=== PATIENT | male | born 1950 | race Caucasian/White ===

== ENCOUNTER 2017-10-19 20:15 | Inpatient (IN) | payer MEDICARE, OTHER, MEDICAID ==
[~2017-10-19] VITALS: Ht 182.9 cm; Wt 81.6 kg
[2017-10-19] MEDS ORDERED: MIDO5TAB PO (21:07)
[2017-10-19] MEDS ORDERED: OLAN5TAB3 PO (21:07)
[2017-10-19] MEDS ORDERED: DIVA500T7 PO (21:07)
[2017-10-19] MEDS ORDERED: LAMO200T2 PO (21:07)
[2017-10-19] MEDS ORDERED: ACET-73 PO (21:07)
[2017-10-19] MEDS ORDERED: DOCU100C36 PO (21:07)
[2017-10-19] MEDS ORDERED: CARB-94 PO (21:07)
[2017-10-19] MEDS ORDERED: IBUP-76 PO (21:07)
[2017-10-19] MEDS ORDERED: MULT1TAB73 PO (21:07)
--- NOTE | 2017-10-19 21:09 | NUR ---
MEDICALLY CLEARED BY DR CRAIG
--- NOTE | 2017-10-19 21:20 | NUR ---
[place] [facility] [place]
[2017-10-19] MEDS ORDERED: ACETAMINOPHEN 325 MG TABLET PO PRN (21:45)
[2017-10-19] MEDS ORDERED: MAGNESIUM HYDROXIDE 30 ML LIQUID UDC PO PRN (21:45)
[2017-10-19] MEDS: ZOLPIDEM 5 MG TABLET PO PRN (22:00)
[2017-10-19] MEDS ORDERED: IBUPROFEN 200 MG TABLET PO PRN (22:15)
--- NOTE | 2017-10-20 00:23 | NUR ---
PATIENT RECEIVED FROM ER VIA [facility] AT 2120. PATIENT ALERT/ORIENTED X1 WITH CONFUSION NOTED, DISORGANIZED, AGITATED, IRRITABLE, AND UNPREDICTABLE. PATIENT UNSTEADY HISTORY OF FALL. SKIN SHOW'S BRUISE TO BACK OF HEAD, BRUISE TO BACK, UPPER BACK BUMP, BRUISE TO LEFT AND RIGHT LEGS, CUTS TO LEFT FINGERS AND RIGHT FINGERS. PATIENT ORIENTED TO UNIT. SPOKE WITH CELSO PINK [phone]. PATIENT FROM [facility] SPOKE WITH [facility] FAXED INFORMATION ON PATIENT [phone]. PATIENT RECEIVED PATIENT RIGHTS HANDBOOK, AND ADVISEMENT.
[2017-10-20] MEDS: LORAZEPAM 0.5 MG TABLET PO PRN (02:57)
[2017-10-20 04:50] VITALS: BP 132/80
[2017-10-20 07:30] VITALS: BP 157/95
[2017-10-20] MEDS ORDERED: LAMOTRIGINE 200 MG TABLET PO SCH ×3 (09:00→21:00)
[2017-10-20] MEDS ORDERED: DIVALPROEX 500 MG TABLET.DR PO SCH (09:00)
[2017-10-20] MEDS: DIVALPROEX ER 500 MG TAB.SR.24H PO SCH ×2 (09:59→16:54)
[2017-10-20] MEDS: DOCUSATE SODIUM 100 MG CAPSULE PO SCH (09:59)
[2017-10-20] MEDS: CARBIDOPA/LEVODOPA 25-250MG TABLET PO SCH ×4 (09:59→20:19)
[2017-10-20] MEDS: LAMOTRIGINE 100 MG TABLET PO SCH ×2 (10:00→20:19)
[2017-10-20] MEDS: MIDODRINE HCL 5 MG TABLET PO SCH ×2 (10:00→16:55)
[2017-10-20] MEDS: MULTIVITAMINS,THERAPEUTIC TABLET PO SCH (10:00)
[2017-10-20] MEDS: NICOTINE 21 MG/24HR PATCH TD SCH ×2 (14:45→17:07)
--- NOTE | 2017-10-20 14:58 | NUR ---
Firearms Report: Plumbing Drafter completed and submitted [employer] Firearms Report on 10/20/17.
[2017-10-20 15:06] VITALS: BP 134/70
[2017-10-20 20:00] VITALS: BP 145/85
[2017-10-20] MEDS ORDERED: QUETIAPINE FUMARATE 25 MG TABLET PO SCH (21:00)
--- NOTE | 2017-10-20 21:55 | NUR ---
PATIENT RECEIVED IN ACTIVITIES ROOM SOCIALIZING WITH STAFF AND PEERS. PATIENT CALM, COOPERATIVE UPON APPROACH. IN NO APPARENT DISTRESS, WILL CONTINUE TO MONITOR. PATIENT USES FWW. PATIENT COMPLAINT WITH MEDICATION. NO AGGRESSIVE OR COMBATIVE BEHAVIOR NOTED WILL CONTINUE TO MONITOR. BED IN LOWEST POSITION, BED LOCKED, AND BED ALARM ON WHILE IN BED.
[2017-10-21] MEDS: ACETAMINOPHEN ES 500 MG TABLET PO PRN (01:47)
[2017-10-21] MEDS: ZOLPIDEM 5 MG TABLET PO PRN (01:51)
[2017-10-21] MEDS: LORAZEPAM 0.5 MG TABLET PO PRN ×2 (04:14→12:41)
[2017-10-21 07:30] VITALS: BP 121/85
[2017-10-21] MEDS: MULTIVITAMINS,THERAPEUTIC TABLET PO SCH (08:49)
[2017-10-21] MEDS: DOCUSATE SODIUM 100 MG CAPSULE PO SCH (08:49)
[2017-10-21] MEDS: NICOTINE 21 MG/24HR PATCH TD SCH (08:49)
[2017-10-21] MEDS: CARBIDOPA/LEVODOPA 25-250MG TABLET PO SCH ×4 (08:50→20:15)
[2017-10-21] MEDS: LAMOTRIGINE 100 MG TABLET PO SCH ×2 (08:50→20:15)
[2017-10-21] MEDS: DIVALPROEX ER 500 MG TAB.SR.24H PO SCH ×2 (08:50→16:30)
[2017-10-21] MEDS: MIDODRINE HCL 5 MG TABLET PO SCH ×2 (08:51→16:31)
--- NOTE | 2017-10-21 14:02 | NUR ---
Initial Discharge Instructions: Patient currently resides at [facility] [[address] [place] [address]; [phone]]. Per pt, he would like to return there upon discharge. Launch Check Out left message for Doni at the facility to confirm if he will be able to return there. SW will continue to collaborate with patient and MD regarding appropriate discharge plan. SW will form a safe and proper discharge.
[2017-10-21 16:09] VITALS: BP 122/71
[2017-10-21 19:51] VITALS: BP 138/91
[2017-10-21] MEDS ORDERED: QUETIAPINE FUMARATE 100 MG TABLET PO SCH (21:00)
[2017-10-21] MEDS ORDERED: QUETIAPINE FUMARATE 25 MG TABLET PO SCH (21:00)
--- NOTE | 2017-10-21 21:23 | NUR ---
RECEIVED PATIENT IN THE DAY ROOM. HE WAS NOTED A/O X 3. HE IS ABLE TO MAKE HIS NEEDS KNOWN AND ABLE TO AMBULATE WITH STEADY GAIT. PATIENT WAS NOTED CALM AND COOPERATIVE, PLEASANT, HYPERVERBAL, TANGENTAL. FAIR INSIGHT. HE DENIES SI, ABLE TO CFS. MEDICATION COMPLIANT AT THIS TIME. SAFETY EMPHASIS BED AT LOWEST POSITION WITH WHEELS LOCKED AND FREQUENT HEAD CHECKS. PT ENCOURAGED TO VERBALIZED FEELINGS.
[2017-10-22] MEDS: LORAZEPAM 0.5 MG TABLET PO PRN ×2 (03:49→14:35)
--- NOTE | 2017-10-22 03:50 | NUR ---
PATIENT WOKE UP AND CAME TO THE NURSING STATION ASKING FOR A SLEEPING PILL. UPON ASSESSMENT, PATIENT WAS NOTED A LITTLE ANXIOUS. ATIVAN 0.5MG PO PRN WAS GIVEN FOR ANXIETY. WILL CONTINUE TO MONITOR.
[2017-10-22] MEDS: ACETAMINOPHEN ES 500 MG TABLET PO PRN (06:19)
--- NOTE | 2017-10-22 06:37 | NUR ---
PATIENT SLEPT FOR APPROX 4.00 HRS THROUGH THE NIGHT. HE CONTINUE HYPERVERBAL, FLIGHT OF IDEAS; HOWEVER NO SI, NO AGGRESSIVE BX WAS NOTED AT THIS TIME. COMPLIANT WITH ADLs. PT C/O LOWER BACK PAIN, TYLENOL 500MG ES PO PRN WAS GIVEN. WILL CONTINUE TO MONITOR.
[2017-10-22 08:00] VITALS: BP 145/81
[2017-10-22] MEDS: LAMOTRIGINE 100 MG TABLET PO SCH ×2 (08:06→20:15)
[2017-10-22] MEDS: DOCUSATE SODIUM 100 MG CAPSULE PO SCH (08:06)
[2017-10-22] MEDS: DIVALPROEX ER 500 MG TAB.SR.24H PO SCH ×2 (08:06→16:43)
[2017-10-22] MEDS: CARBIDOPA/LEVODOPA 25-250MG TABLET PO SCH ×4 (08:06→20:15)
[2017-10-22] MEDS: NICOTINE 21 MG/24HR PATCH TD SCH (08:06)
[2017-10-22] MEDS: MULTIVITAMINS,THERAPEUTIC TABLET PO SCH (08:06)
[2017-10-22 08:15] LABS: THYROID STIMULATING HORMONE 1.709 mIU/mL (0.358-3.740)
[2017-10-22 08:16] LABS: BASOPHILS % (AUTO) 0.5 % (0.0-2.0); EOSINOPHILS # (AUTO) 0.1 K/uL (0.0-0.7); EOSINOPHILS % (AUTO) 0.7 % (0.0-7.0); HEMOGLOBIN 12.1 g/dL (12.5-16.3); LYMPHOCYTES # (AUTO) 0.8 K/uL (20.0-40.0); LYMPHOCYTES % (AUTO) 8.9 % (20.5-51.5); MEAN CORPUSCULAR HEMOGLOBIN 30.9 uug (23.8-33.4); MEAN CORPUSCULAR HGB CONC 34 g/dL (32.5-36.3); MEAN CORPUSCULAR VOLUME 92.1 fL (73.0-96.2); MONOCYTES # (AUTO) 1.1 K/uL (2.0-10.0); MONOCYTES % (AUTO) 11.8 % (0.0-11.0); NEUTROPHILS # (AUTO) 7.3 K/uL (1.8-8.9); NEUTROPHILS % (AUTO) 78.1 % (38.5-71.5); PLATELET COUNT (AUTO) 198 K/uL (152-348); RED BLOOD CELL COUNT(AUTO) 3.91 MIL/uL (4.06-5.63); WHITE BLOOD COUNT (AUTO) 9.4 K/uL (3.6-10.2)
[2017-10-22 08:27] LABS: BILIRUBIN,TOTAL 0.4 mg/dL (0.2-1.0); CREATININE 1.9 mg/dL (0.6-1.3); MAGNESIUM 2.2 mg/dL (1.8-2.4); PHOSPHOROUS 3.2 mg/dL (2.5-4.9); POTASSIUM 4.9 mmol/L (3.5-5.1); TOTAL PROTEIN, SERUM 6.7 g/dL (6.4-8.2)
[2017-10-22] MEDS: MIDODRINE HCL 5 MG TABLET PO SCH ×2 (08:44→16:42)
--- NOTE | 2017-10-22 08:44 | NUR ---
orthostatic B/p: sitting-128/63; standing-121/67
[2017-10-22 16:00] VITALS: BP 140/70
[2017-10-22 17:46] LABS: *BILIRUBIN,URIN NEGATIVE (NEGATIVE); *BLOOD, URINE NEGATIVE (NEGATIVE); *CLARITY,URINE CLEAR (CLEAR); *COLOR,URINE LIGHT YELLOW (YELLOW); *KETONES,URINE NEGATIVE (NEGATIVE); *PROTEIN,URINE NEGATIVE (NEGATIVE); *UROBILINOGEN,URINE 0.2 E.U./dl (NORMAL); LEUKOCYTE ESTERASE ,URINE NEGATIVE (NEGATIVE); NITRITE, URINE NEGATIVE (NEGATIVE); UGLUCOSE NEGATIVE (NEGATIVE)
[2017-10-22 17:51] LABS: *CREATININE,URINE < 13.0 mg/dL (30-125); *URINE TOTAL PROTEIN RANDOM < 6.0 mg/dL (<150/24HR)
[2017-10-22 18:19] LABS: WBC,URINE NONE SEEN /HPF (0-3)
[2017-10-22 20:16] VITALS: BP 126/76
[2017-10-22] MEDS: QUETIAPINE FUMARATE 100 MG TABLET PO SCH (20:16)
[2017-10-22 20:18] VITALS: BP 141/80
--- NOTE | 2017-10-22 20:39 | NUR ---
Orthostatic B/P: Sitting - 126/76; Standing - 141/80
--- NOTE | 2017-10-22 20:40 | NUR ---
RECEIVED PATIENT IN THE DAY ROOM. HE WAS NOTED A/O X 3, AMBULATES INDEPENDENTLY WITH STEADY GAIT AND BALANCE, TREMORS R/T HX OF PARKINSON'S DISEASE. PATIENT WAS COOPERATIVE, PLEASANT, HYPERVERBAL, TANGENTIAL. FAIR INSIGHT. DENIES SI/HI, ABLE TO CFS. PATIENT'S BRUISING AND CUTS THAT WERE NOTED IN H&P HAVE IMPROVED. PATIENT HAS NOT COMPLAINED OF PAIN. COMPLIANT TO MEDICATIONS AT THIS TIME. SAFETY EMPHASIZED; BED AT LOWEST POSITION WITH WHEELS LOCKED AND FREQUENT HEAD CHECKS. PATIENT ENCOURAGED TO VERBALIZE FEELINGS.
[2017-10-22 23:23] VITALS: BP 100/70
--- NOTE | 2017-10-22 23:43 | NUR ---
AT APPROXIMATELY 2229, PATIENT WAS WALKING DOWN THE HALLWAY FROM DAY ROOM TO HIS ROOM AND WAS NOTED TO HAVE PALE SKIN. PATIENT WAS IMMEDIATELY SEATED ON A CHAIR IN THE HALLWAY AND V/S WERE ASSESSED: B/P OF 89/56; HR 78; 96% O2 SAT, RESPONSIVE, A/O X 2. PATIENT REPORTED LIGHT HEADEDNESS AND DIZZINESS. TRANSFERRED PATIENT TO BED, PLACED ON TRENDELENBURG POSITION AND CONTINUED MONITORING V/S EVERY 5 MINUTES FOR 30 MINUTES. SYSTOLIC B/P WAS STABLE AND AT A CONSISTENT RANGE BETWEEN 90 AND 100, DIASTOLIC B/P WAS STABLE AND AT A CONSISTENT RANGE BETWEEN 60 AND 70, PATIENT ASLEEP BUT AROUSABLE, RESPONSIVE, LETHARGIC. BED POSITION WAS CHANGED FROM TRENDELENBURG TO LITHOTOMY POSITION, V/S WERE ASSESSED AFTER 10 MINUTES AT 2310: B/P OF 100/70; HR 80, 96% O2 SAT, RR 17. PATIENT WAS NOTED TO BE ASLEEP AND STABLE. WILL CONTINUE TO FREQUENTLY MONITOR PATIENT.
[2017-10-22 23:53] VITALS: BP 111/70
--- NOTE | 2017-10-23 06:17 | NUR ---
PATIENT WHILE IN THE DAY ROOM WAS NOTED WITH DESTRUCTIVE BX. HE PULLED FEW DECORATIONS, THROW MAGAZINES AND PAPER ON THE FLOOR. PT WAS REDIRECTED, HOWEVER, HE BECOME SARCASTIC REFUSING TO CLEAN AFTER HIMSELF. WILL CONTINUE TO MONITOR.
[2017-10-23 07:12] LABS: BASOPHILS % (AUTO) 0.5 % (0.0-2.0); EOSINOPHILS # (AUTO) 0.1 K/uL (0.0-0.7); EOSINOPHILS % (AUTO) 1.7 % (0.0-7.0); LYMPHOCYTES # (AUTO) 1.2 K/uL (20.0-40.0); LYMPHOCYTES % (AUTO) 14.7 % (20.5-51.5); MEAN CORPUSCULAR HEMOGLOBIN 30.8 uug (23.8-33.4); MEAN CORPUSCULAR HGB CONC 33 g/dL (32.5-36.3); MEAN CORPUSCULAR VOLUME 92.5 fL (73.0-96.2); MONOCYTES % (AUTO) 12.9 % (0.0-11.0); NEUTROPHILS # (AUTO) 5.6 K/uL (1.8-8.9); NEUTROPHILS % (AUTO) 70.2 % (38.5-71.5); PLATELET COUNT (AUTO) 219 K/uL (152-348); RED BLOOD CELL COUNT(AUTO) 3.89 MIL/uL (4.06-5.63)
[2017-10-23 07:26] LABS: BILIRUBIN,TOTAL 0.4 mg/dL (0.2-1.0); CREATININE 1.8 mg/dL (0.6-1.3); MAGNESIUM 2.3 mg/dL (1.8-2.4); PHOSPHOROUS 3.4 mg/dL (2.5-4.9); POTASSIUM 5.1 mmol/L (3.5-5.1); TOTAL PROTEIN, SERUM 6.7 g/dL (6.4-8.2)
[2017-10-23 07:30] VITALS: BP 131/82
[2017-10-23] MEDS: LAMOTRIGINE 100 MG TABLET PO SCH ×2 (08:37→20:28)
[2017-10-23] MEDS: DOCUSATE SODIUM 100 MG CAPSULE PO SCH (08:37)
[2017-10-23] MEDS: MULTIVITAMINS,THERAPEUTIC TABLET PO SCH (08:37)
[2017-10-23] MEDS: DIVALPROEX ER 500 MG TAB.SR.24H PO SCH ×2 (08:37→16:23)
[2017-10-23] MEDS: CARBIDOPA/LEVODOPA 25-250MG TABLET PO SCH ×4 (08:37→20:28)
[2017-10-23] MEDS: MIDODRINE HCL 5 MG TABLET PO SCH ×2 (08:38→16:27)
[2017-10-23] MEDS: NICOTINE 21 MG/24HR PATCH TD SCH (08:38)
[2017-10-23 15:00] VITALS: BP 146/78
[2017-10-23] MEDS: MAG HYDROX/AL HYDROX/SIMETH 30 ML LIQUID UDC PO PRN (16:15)
[2017-10-23 20:10] VITALS: BP 132/77
[2017-10-23] MEDS: QUETIAPINE FUMARATE 100 MG TABLET PO SCH (20:29)
[2017-10-23] MEDS: LORAZEPAM 0.5 MG TABLET PO PRN (23:54)
[2017-10-24] VITALS (7 sets, daily range): BP systolic 138–152; BP diastolic 75–84
--- NOTE | 2017-10-24 06:45 | NUR ---
PATIENT WHILE IN THE DAY ROOM WAS NOTED WITH DESTRUCTIVE BX. HE PULLED FEW DECORATIONS, THROW MAGAZINES AND PAPER ON THE FLOOR. PT WAS REDIRECTED AND WAS COOPERATIVE WITH RN. WHILE IN HIS ROOM, PT WAS EXHIBITING DISRUPTIVE BX (SINGING OUT LOUD EVEN WHEN ASKED TO STOP), WAS UNCOOPERATIVE AND AGGRESSIVE TOWARDS OTHER STAFF (OTHER NURSES). RN WAS ABLE TO REDIRECT PT, BUT STILL EXHIBITED ANXIETY BX, ATIVAN 0.5 MG PO WAS GIVEN @ 2359 TO HELP REDUCE ANXIETY. PT WAS REASSESSED WITHIN ONE HOUR AND MEDICATION NOT EFFECTIVE. PT STILL EXHIBITED ANXIETY BX, HYPERVERBAL, TANGENTAL SPEECH, COOPERATIVE. PT STAYED AWAKE THE WHOLE NIGHT AND CONTINUED TO BE AGGRESSIVE TOWARDS OTHER STAFF. AT APPROX 0330, PT CAME OUT OF ROOM EXHIBITING DESTRUCTIVE BX AND TALKING LOUDLY WHILE AMBULATING IN HALLWAY WITH FWW. ALUMINUM CONTAINER TESTER (GINA ROY) ASKED PT TO GO BACK IN HIS ROOM AND TO LOWER HIS VOICE. PATIENT BECAME AGITATED, RAISED HIS FWW, AND BEGAN TO SWING AND HIT ALUMINUM CONTAINER TESTER WITH FWW. PATIENT WAS NEUTRALIZED BY STAFF AND PLACED IN MIKA CHAIR NEXT TO NURSE STATION FOR SAFETY. WILL CONTINUE TO MONITOR.
[2017-10-24 08:06] LABS: A/G RATIO 1.3 (0.7-1.7); ALBUMIN 3.4 g/dL (2.9-4.4); ALPHA-1-GLOBULIN 0.3 g/dL (0.0-0.4); ALPHA-2-GLOBULIN 0.7 g/dL (0.4-1.0); BETA GLOBULIN 0.8 g/dL (0.7-1.3); GAMMA GLOBULIN 0.7 g/dL (0.4-1.8); GLOBULIN, TOTAL 2.6 g/dL (2.2-3.9); M-SPIKE Not Observed g/dL (Not Observed)
[2017-10-24] MEDS: MULTIVITAMINS,THERAPEUTIC TABLET PO SCH (08:10)
[2017-10-24] MEDS: NICOTINE 21 MG/24HR PATCH TD SCH (08:10)
[2017-10-24] MEDS: DIVALPROEX ER 500 MG TAB.SR.24H PO SCH ×2 (08:10→16:30)
[2017-10-24] MEDS: CARBIDOPA/LEVODOPA 25-250MG TABLET PO SCH ×4 (08:10→21:30)
[2017-10-24] MEDS: LAMOTRIGINE 100 MG TABLET PO SCH ×2 (08:10→21:31)
[2017-10-24] MEDS: DOCUSATE SODIUM 100 MG CAPSULE PO SCH (08:10)
[2017-10-24] MEDS: MIDODRINE HCL 5 MG TABLET PO SCH ×2 (08:17→21:00)
--- NOTE | 2017-10-24 15:00 | NUR ---
Gps/Kitchen Designer- Anxious, talkative, needed to be redirected. B/P sitting 140/76 HR 97, standing 131/74 HR 94 , 02 sat 96% on room air. Ativan 0.5 mg was given po, minimal results. Edwina Castillo OPERATIONAL RISK ANALYST was notified, in to see patient orders received.
[2017-10-24] MEDS: QUETIAPINE FUMARATE 100 MG TABLET PO SCH (21:31)
--- NOTE | 2017-10-25 01:02 | NUR ---
GPS/NSG Patient first observed awake in room, alert, oriented to name and place. Patient refused vital signs. Patient visible at the nursing station asking for medication, pleasant fair appearance, appropriate approach to staff. Continue to monitor for safety.
--- NOTE | 2017-10-25 03:30 | NUR ---
Patient awake and visible on the unit, patient loud and required redirecting. Patient under the impression that HS medication was administered at 1700, patient appeared angry when redirected. Continue to monitor.
--- NOTE | 2017-10-25 06:44 | NUR ---
GPS/NSG Proamatine due at 2100 held for B/P parameters. Continue to monitor orthostatic blood pressure before administration.
[2017-10-25 07:30] VITALS: BP 131/86
[2017-10-25] MEDS: LAMOTRIGINE 100 MG TABLET PO SCH ×2 (09:00→20:38)
[2017-10-25] MEDS: MULTIVITAMINS,THERAPEUTIC TABLET PO SCH (09:00)
[2017-10-25] MEDS: CARBIDOPA/LEVODOPA 25-250MG TABLET PO SCH ×4 (09:00→20:38)
[2017-10-25] MEDS: DOCUSATE SODIUM 100 MG CAPSULE PO SCH (09:00)
[2017-10-25] MEDS: DIVALPROEX ER 500 MG TAB.SR.24H PO SCH ×2 (09:00→17:02)
[2017-10-25] MEDS: MIDODRINE HCL 5 MG TABLET PO SCH ×2 (09:00→20:39)
[2017-10-25] MEDS: NICOTINE 21 MG/24HR PATCH TD SCH (09:00)
[2017-10-25] MEDS: LORAZEPAM 0.5 MG TABLET PO PRN (10:56)
[2017-10-25 15:00] VITALS: BP 146/75
[2017-10-25 20:00] VITALS: BP 153/72
[2017-10-25] MEDS: QUETIAPINE FUMARATE 100 MG TABLET PO SCH (20:38)
--- NOTE | 2017-10-26 06:51 | NUR ---
GPS/NSG Patient first observed awake on unit with labile mood, blunted affect. Patient visible in and out of room, compliant with medication. Proamatine due at 2100 held for B/P parameters. Continue to monitor orthostatic blood pressure before administration. Patient observed at nursing station periodically with increased agitation, demanding, verbally abusive towards staff inappropriate behavior loud, disruptive, taking things posted on the wall, banging on the tables in activity room, responding to internal stimuli, reinforcement by security was necessary to reduce level of agitation, patient was receptive, will continue to monitor behavior for patient safety.
[2017-10-26 07:30] VITALS: BP 152/74
[2017-10-26 08:03] LABS: BASOPHILS % (AUTO) 0.5 % (0.0-2.0); EOSINOPHILS # (AUTO) 0.2 K/uL (0.0-0.7); EOSINOPHILS % (AUTO) 2.1 % (0.0-7.0); HEMATOCRIT 35.9 % (36.7-47.1); HEMOGLOBIN 11.9 g/dL (12.5-16.3); LYMPHOCYTES # (AUTO) 1.5 K/uL (20.0-40.0); LYMPHOCYTES % (AUTO) 16.7 % (20.5-51.5); MEAN CORPUSCULAR HEMOGLOBIN 30.7 uug (23.8-33.4); MEAN CORPUSCULAR HGB CONC 33 g/dL (32.5-36.3); MEAN CORPUSCULAR VOLUME 92.8 fL (73.0-96.2); MONOCYTES # (AUTO) 1.4 K/uL (2.0-10.0); MONOCYTES % (AUTO) 15.8 % (0.0-11.0); NEUTROPHILS # (AUTO) 5.8 K/uL (1.8-8.9); NEUTROPHILS % (AUTO) 64.9 % (38.5-71.5); PLATELET COUNT (AUTO) 270 K/uL (152-348); RED BLOOD CELL COUNT(AUTO) 3.87 MIL/uL (4.06-5.63)
[2017-10-26 08:17] LABS: BILIRUBIN,TOTAL 0.4 mg/dL (0.2-1.0); CREATININE 1.9 mg/dL (0.6-1.3); MAGNESIUM 2.4 mg/dL (1.8-2.4); PHOSPHOROUS 3.4 mg/dL (2.5-4.9); POTASSIUM 4.7 mmol/L (3.5-5.1); TOTAL PROTEIN, SERUM 7.1 g/dL (6.4-8.2)
[2017-10-26] MEDS: MIDODRINE HCL 5 MG TABLET PO SCH (09:00)
[2017-10-26 09:09] LABS: BAND % (MANUAL) 1 % (0-10); EOSINOPHILS % (MANUAL) 2 % (0-8); LYMPHOCYTES % (MANUAL) 17 % (20-40); MONOCYTES % (MANUAL) 11 % (2-10); MYELOCYTES % 1 % (0-0); NEUTROPHILS % (MANUAL) 68 % (42-75)
[2017-10-26] MEDS: DOCUSATE SODIUM 100 MG CAPSULE PO SCH (09:13)
[2017-10-26] MEDS: DIVALPROEX ER 500 MG TAB.SR.24H PO SCH (09:13)
[2017-10-26] MEDS: MULTIVITAMINS,THERAPEUTIC TABLET PO SCH (09:13)
[2017-10-26] MEDS: CARBIDOPA/LEVODOPA 25-250MG TABLET PO SCH ×4 (09:13→20:43)
[2017-10-26] MEDS: LAMOTRIGINE 100 MG TABLET PO SCH ×2 (09:15→20:43)
[2017-10-26] MEDS ORDERED: AMLODIPINE 5 MG TABLET PO SCH (11:45)
[2017-10-26] MEDS ORDERED: METOPROLOL TARTRATE 25 MG TABLET PO SCH (11:45)
[2017-10-26] MEDS: LORAZEPAM 0.5 MG TABLET PO PRN (12:06)
[2017-10-26] MEDS: DIVALPROEX ER 250 MG TAB.SR.24H PO SCH ×2 (12:13→16:57)
[2017-10-26] MEDS: NICOTINE 21 MG/24HR PATCH TD SCH (12:17)
[2017-10-26 15:38] VITALS: BP 159/85
[2017-10-26] MEDS: ACETAMINOPHEN ES 500 MG TABLET PO PRN (15:39)
[2017-10-26] MEDS ORDERED: MIDODRINE HCL 5 MG TABLET PO SCH (17:00)
[2017-10-26] MEDS ORDERED: DIVALPROEX ER 500 MG TAB.SR.24H PO SCH (17:00)
[2017-10-26 19:57] VITALS: BP 127/73
[2017-10-26] MEDS: QUETIAPINE FUMARATE 100 MG TABLET PO SCH (20:44)
[2017-10-27 07:30] VITALS: BP 142/85
--- NOTE | 2017-10-27 07:30 | NUR ---
Awake, angry, refused to talk to me.
[2017-10-27] MEDS: DOCUSATE SODIUM 100 MG CAPSULE PO SCH (08:34)
[2017-10-27] MEDS: DIVALPROEX ER 250 MG TAB.SR.24H PO SCH ×2 (08:34→17:59)
[2017-10-27] MEDS: NICOTINE 21 MG/24HR PATCH TD SCH (08:35)
[2017-10-27] MEDS: MULTIVITAMINS,THERAPEUTIC TABLET PO SCH ×2 (08:35→09:00)
[2017-10-27] MEDS: LAMOTRIGINE 100 MG TABLET PO SCH ×2 (08:35→20:47)
[2017-10-27] MEDS: LORAZEPAM 0.5 MG TABLET PO PRN (08:35)
[2017-10-27] MEDS: CARBIDOPA/LEVODOPA 25-250MG TABLET PO SCH ×4 (08:35→20:47)
--- NOTE | 2017-10-27 08:35 | NUR ---
Pacing but pleasant, compliant wit taking of medications
[2017-10-27] MEDS: METOPROLOL TARTRATE 25 MG TABLET PO SCH ×2 (12:26→20:48)
[2017-10-27 15:09] VITALS: BP 138/81
[2017-10-27] MEDS: BACITRACIN/POLYMYXIN B OINT 15 GM TUBE TOP SCH ×2 (17:59→20:51)
--- NOTE | 2017-10-27 18:19 | NUR ---
Noted dried cuts on fingers, antibiotic treatment initiated. Eating fairly. Calm and compliant with care.
[2017-10-27 20:37] VITALS: BP 148/75
[2017-10-27] MEDS: QUETIAPINE FUMARATE 100 MG TABLET PO SCH (20:47)
[2017-10-28] MEDS: ACETAMINOPHEN ES 500 MG TABLET PO PRN ×2 (03:18→20:45)
--- NOTE | 2017-10-28 04:30 | NUR ---
c/o back pain, stating she hurt her shoulder and back two weeks ago, was given tylenol 500mg po per MD order as requested by pt. sleeping comfortably in bed at this time.
--- NOTE | 2017-10-28 06:55 | NUR ---
Slept 4.30 hrs.
[2017-10-28 07:30] VITALS: BP 123/78
[2017-10-28] MEDS: QUETIAPINE FUMARATE 25 MG TABLET PO SCH ×2 (09:41→17:59)
[2017-10-28] MEDS: DIVALPROEX ER 250 MG TAB.SR.24H PO SCH ×2 (09:41→17:59)
[2017-10-28] MEDS: METOPROLOL TARTRATE 25 MG TABLET PO SCH ×2 (09:41→21:00)
[2017-10-28] MEDS: DOCUSATE SODIUM 100 MG CAPSULE PO SCH (09:41)
[2017-10-28] MEDS: LAMOTRIGINE 100 MG TABLET PO SCH ×2 (09:41→20:34)
[2017-10-28] MEDS: MULTIVITAMINS,THERAPEUTIC TABLET PO SCH (09:42)
[2017-10-28] MEDS: BACITRACIN/POLYMYXIN B OINT 15 GM TUBE TOP SCH ×2 (09:42→20:34)
[2017-10-28] MEDS: NICOTINE 21 MG/24HR PATCH TD SCH (09:42)
[2017-10-28] MEDS: CARBIDOPA/LEVODOPA 25-250MG TABLET PO SCH ×4 (10:36→20:34)
[2017-10-28] MEDS: LORAZEPAM 0.5 MG TABLET PO PRN (14:02)
[2017-10-28 16:44] VITALS: BP 140/74
[2017-10-28 20:23] VITALS: BP 124/91
[2017-10-28] MEDS: QUETIAPINE FUMARATE 100 MG TABLET PO SCH (20:34)
--- NOTE | 2017-10-28 21:00 | NUR ---
RECEIVED PATIENT IN HIS ROOM IN BED. HE WAS NOTED ASLEEP BUT EASILY AWAKEN. HE IS A/O X 3. BLUNTED AFFECT, DEPRESSED MOOD. MEDICATION COMPLIANT AT THIS TIME. SNACKS WERE PROVIDE. DENIES SI/HI. NO AGGRESSIVE BX NOTED AT THIS TIME.
--- NOTE | 2017-10-28 21:30 | NUR ---
PATIENT WAS NOTED DROWSY, BUT RESPONSIVE WHILE SITTING IN A CHAIR IN THE DAY ROOM. PT WAS THEN TRANSFERRED TO A WHEEL CHAIR AND TAKEN TO HIS BED. V/S:B/P 92/57, PULSE 82, RESPIRATION 17 BREATHS PER MIN. O2 SAT AT ROOM AIR 92%. DENIES PAIN OR DISCOMFORT. PATIENT WAS PLACED IN HIS BED WITH LEGS ELEVATED. WILL CONTINUE TO MONITOR CLOSELY.
--- NOTE | 2017-10-28 21:40 | NUR ---
PATIENT V/S: B/P 101/57; PULSE 83BPM; RESPIRATION 17BREATHS/MIN AND O2SAT 94% AT ROOM AIR. PT NOTED ASLEEP IN HIS BED. WILL CONTINUE TO MONITOR CLOSELY.
--- NOTE | 2017-10-29 05:22 | NUR ---
PATIENT WOKE UP AND STARTED PACING THE HALLWAY, HE WAS NOTED EASILY IRRITABLE, FLIGHT OF IDEAS, DISORGANIZED. NO AGGRESSIVE BX NOTED AT THIS TIME. WILL CONTINUE TO MONITOR CLOSELY.
--- NOTE | 2017-10-29 06:14 | NUR ---
PT CONTINUE PACING IN HIS ROOM. EASILY IRRITABLE, FLIGHT OF IDEAS, LABILE BX. HE INITIALLY ASKED FOR TYLENOL THEN 2 MIN LATER, HE REFUSED TO TAKE IT. HE WAS NOTED VERBALLY AGGRESSIVE. MULTIPLE REDIRECTION GIVEN, HOWEVER, HE STATED, I DON'T WANT YOU MEDICATION, GIVE IT SOMEONE ELSE AND GET OUT OF MY ROOM!!!" WILL CONTINUE TO MONITOR CLOSELY.
--- NOTE | 2017-10-29 07:03 | NUR ---
PT SLEPT FOR APPROX 4.30 HRS THROUGH THE NIGHT. HE WAS NOTED TALKING TO HIMSELF, RESPONDING TO VERBAL STIMULI. WILL CONTINUE TO MONITOR.
[2017-10-29 07:30] VITALS: BP 115/82
[2017-10-29] MEDS: MULTIVITAMINS,THERAPEUTIC TABLET PO SCH (09:00)
[2017-10-29] MEDS: DOCUSATE SODIUM 100 MG CAPSULE PO SCH (09:00)
[2017-10-29] MEDS: LAMOTRIGINE 100 MG TABLET PO SCH ×2 (09:00→20:10)
[2017-10-29] MEDS: DIVALPROEX ER 250 MG TAB.SR.24H PO SCH ×2 (09:00→17:00)
[2017-10-29] MEDS: CARBIDOPA/LEVODOPA 25-250MG TABLET PO SCH ×4 (09:00→20:11)
[2017-10-29] MEDS: QUETIAPINE FUMARATE 25 MG TABLET PO SCH ×2 (09:00→17:00)
[2017-10-29] MEDS: METOPROLOL TARTRATE 25 MG TABLET PO SCH ×2 (09:00→21:00)
[2017-10-29] MEDS: BACITRACIN/POLYMYXIN B OINT 15 GM TUBE TOP SCH ×2 (09:00→20:19)
[2017-10-29] MEDS: NICOTINE 21 MG/24HR PATCH TD SCH (09:00)
[2017-10-29] MEDS: LORAZEPAM 0.5 MG TABLET PO PRN (10:38)
[2017-10-29 16:14] VITALS: BP 143/78
[2017-10-29 20:00] VITALS: BP 143/78
[2017-10-29] MEDS: QUETIAPINE FUMARATE 100 MG TABLET PO SCH (20:11)
--- NOTE | 2017-10-29 22:00 | NUR ---
received to care, sitting in activity room, talking to self, pleasant upon approach. compliant with medications, and staff direction. as of 0, he appears to be asleep. no distress noted. will continue to monitor closely.
[2017-10-30 00:15] VITALS: BP 124/64
--- NOTE | 2017-10-30 00:15 | NUR ---
pt is now awake, ambulating in the hallway. b/p was checked, and it was 124/64, hr 84. pt denies any dizziness, or lightheadedness. bedtime snack was given, and he was assisted back to his room. 1;1 interaction was provided for a few minutes. he is now, in his room,talking to himself. remains calm. no distress noted. will continue to monitor closely.
--- NOTE | 2017-10-30 01:58 | NUR ---
REMAINS AWAKE, TALKING TO SELF. AMBULATING IN HALLWAY, WITH A LOUD VOICE. REDIRECTED BACK TO HIS ROOM. PRN MEDICATIONS WERE OFFERED, BUT HE DECLINED. CURRENTLY WRITING ON A PIECE OF PAPER. WILL CONTINUE TO MONITOR CLOSELY.
--- NOTE | 2017-10-30 03:15 | NUR ---
remains awake. threw trash and linens all over the whole room. staff confronted him, and told him that his room was to be moved, because of a female being admitted to his room. he refused to change rooms. when hospital security approached, he complied with moving rooms, but gait appeared unsteady, so he was placed in the mac chair, for safety. currently in his room, talking to himself, loudly. placed in the day room, due to noisiness, and disturbing his room mate. will continue to monitor closely for safety.
--- NOTE | 2017-10-30 05:30 | NUR ---
REMAINS AGITATED. PULLED FIRE ALARM IN DINING ROOM, YELLING THAT [employer] AND KILA IS STAGING A NUCLEAR ATTACK ON BIPIN.
--- NOTE | 2017-10-30 06:24 | NUR ---
appears calmer, now. currently conversing with his room mate. no distress noted.
[2017-10-30 07:30] VITALS: BP 159/84
[2017-10-30] MEDS: NICOTINE 21 MG/24HR PATCH TD SCH (08:58)
[2017-10-30] MEDS: LAMOTRIGINE 100 MG TABLET PO SCH ×2 (08:58→21:00)
[2017-10-30] MEDS: DIVALPROEX ER 250 MG TAB.SR.24H PO SCH ×2 (08:58→17:00)
[2017-10-30] MEDS: METOPROLOL TARTRATE 25 MG TABLET PO SCH (08:59)
[2017-10-30] MEDS: QUETIAPINE FUMARATE 25 MG TABLET PO SCH (08:59)
[2017-10-30] MEDS: DOCUSATE SODIUM 100 MG CAPSULE PO SCH (09:00)
[2017-10-30] MEDS: BACITRACIN/POLYMYXIN B OINT 15 GM TUBE TOP SCH ×2 (09:00→21:00)
[2017-10-30] MEDS: MULTIVITAMINS,THERAPEUTIC TABLET PO SCH (09:00)
[2017-10-30] MEDS: CARBIDOPA/LEVODOPA 25-250MG TABLET PO SCH ×4 (09:10→21:00)
[2017-10-30] MEDS: BENZTROPINE MESYLATE 0.5 MG TABLET PO SCH ×2 (11:00→17:00)
[2017-10-30] MEDS: HALOPERIDOL 2 MG TABLET PO SCH ×3 (11:00→17:00)
--- NOTE | 2017-10-30 13:35 | NUR ---
Gps/Milk Delivery Driver- Right foot swollen ,noted some redness, denies pain, encouraged to wear socks , patient refused. Refused routine afternoon medications. Reviewed with patient, still refused, claimed he does not need any medications, and he needs to leave.
--- NOTE | 2017-10-30 15:30 | NUR ---
Gps/Art History Professor- patient never stop talking, loud, labile mood,extreme agitation difficulty redirecting patient, disruptive , verbally abusive to staff, patient calling 911,unable to contract for safety . Charged Nurse called Psychiatrist, informed of patient' behavior orders received.
[2017-10-30] MEDS ORDERED: diphenhydrAMINE 50 MG/1 ML VIAL IM ONE (15:45)
[2017-10-30] MEDS ORDERED: HALOPERIDOL LACTATE 5 MG/1 ML VIAL IM ONE (15:45)
--- NOTE | 2017-10-30 16:45 | NUR ---
PT WAS OBSERVED, PACING IN THE HALLWAY, BEING LOUD, HYPERVERBAL, DISRUPTIVE, TANGENTIAL SPEECH, REFUSES TO WEAR SOCKS, YELLING ABOUT BASKETBALL TEAM AND DEMANDS HIS SHOES WITH SHOE LACES WITH THEM. PT WAS REDIRECTED MULTIPLE TIMES, PT IS VERBALLY OFFENSIVE TO STAFF, CALLING THEM 'STUPID'. PT ABUSES HIS RIGHTS BUT CONSTANTLY CALLING, INCLUDING PLACING 911 CALLS. PT IS REFUSING PO MEDICATIONS. DR. WATTERS CONTACTED, ORDER FOR BENADRYL 25MG AND HALDOL 5 MG IM WAS RECEIVED. MEDICATIONS ADMINISTERED AT 1546 WITH ASSISTANCE OF 2 SECURITY GUARDS. PT YELLS AND THREATENED TO PAULO FOR 5 MILLION DOLLARS. SCREAMING "HOPE YOU !" HANDS PUT ON THE PATIENT FOR THE TOTAL OF 3 MINUTES. PT IS AGITATED, REFUSES VITAL SIGNS. AT 1620, PT WAS NOTED TO THROW MAGAZINES AND PAPER AROUND HIS ROOM. AT 1630 PT IS STILL PACING THE UNIT AND CONSTANTLY TALKING.
--- NOTE | 2017-10-30 18:11 | NUR ---
Gps/Toll Operator- patient continue to be labile, talking loud, refusing routine patient medication , constantly on the hallway phone,banging it, no dial tone per patient.Constantly asking for his shoes with the shoe laces on per patient, informed he can have the shoes w/o shoe laces ,per patient"then i dont want it, i will this place". Constantlly talking to himself in his room. Continue to monitor patient behavior.
[2017-10-30 20:00] VITALS: BP 165/72
--- NOTE | 2017-10-30 20:00 | NUR ---
pt is very agitated, yelling out obscenities, refusing his medications, threatening to strike staff. difficult to redirect. threw trash all over his room, and the hallway. states "im going to kick your ass", when redirected. Dr Elkins was paged.
[2017-10-30] MEDS ORDERED: OLANZAPINE 10 MG VIAL IM STA (20:13)
[2017-10-30] MEDS ORDERED: LORAZEPAM 2 MG/1 ML VIAL IM STA (20:13)
--- NOTE | 2017-10-30 20:32 | NUR ---
IM zyprexa 10 mg/ ativan 2 mg, given IM, per MD orders. pt complied with procedure, with program staff, and 2 security officers present. pt is now up in mac chair, in hallway, talking to self, making verbal threats, to staff. will continue to monitor closely, for safety.
[2017-10-30] MEDS: QUETIAPINE FUMARATE 100 MG TABLET PO SCH (21:00)
--- NOTE | 2017-10-30 21:30 | NUR ---
appears slightly calmer. remains hyperverbal, talking incoherently. remains in hallway for safety. will continue to monitor closely.
[2017-10-30 21:40] VITALS: BP 154/75
--- NOTE | 2017-10-30 22:30 | NUR ---
assisted to bed, but immediately tried to get out of bed. gait remains unsteady. assisted to the bathroom, and fluids given. due to his noncompliance with staying in bed, he was assisted back in the mac chair, for safety. continues to yell and curse at staff intermittently.
--- NOTE | 2017-10-31 01:00 | NUR ---
has been napping on and off for a few minutes at a time. each time he wakes back up, he continues to yell and curse. difficult to redirect. stated "im going to yell all night and wake everyone up" placed in empty room a [facility] station, for closer monitoring. will continue to monitor closely.
--- NOTE | 2017-10-31 02:43 | NUR ---
appears calmer, now. continues to yell out, intermittently.
--- NOTE | 2017-10-31 05:30 | NUR ---
pt was much calmer, by 0500. he was assisted with a shower, and placed in bed, with the alarm on. gait remains unsteady. as of 05, he appears to be asleep. no distress noted. will continue to monitor closely.
--- NOTE | 2017-10-31 07:00 | NUR ---
continues to sleep. refused AM labs.
--- NOTE | 2017-10-31 07:25 | NUR ---
bed alarm went off, at 0705. staff went in to investigate, and pt was found on the floor. he stated he was trying to urinate in the toilet. he had a laceration to the back of the head. he was placed back in the mac chair, for safety. area was cleansed and ice was applied. nursing abattoir supervisor was notified. Dr Forte was notified. he ordered for him to be taken to the emergency room, for evaluation. Dr Elkins was also notified of incident.
[2017-10-31 07:30] VITALS: BP 129/65
--- NOTE | 2017-10-31 07:45 | NUR ---
pt transferred to the emergency room, for evaluation.
[2017-10-31] MEDS: NICOTINE 21 MG/24HR PATCH TD SCH (09:00)
[2017-10-31] MEDS: BENZTROPINE MESYLATE 0.5 MG TABLET PO SCH ×3 (09:00→17:06)
[2017-10-31] MEDS: DIVALPROEX ER 250 MG TAB.SR.24H PO SCH ×3 (09:00→18:12)
[2017-10-31] MEDS: BACITRACIN/POLYMYXIN B OINT 15 GM TUBE TOP SCH ×2 (09:00→20:44)
[2017-10-31] MEDS: HALOPERIDOL 2 MG TABLET PO SCH ×4 (09:00→17:06)
[2017-10-31] MEDS: LAMOTRIGINE 100 MG TABLET PO SCH ×3 (09:00→20:42)
[2017-10-31] MEDS: MULTIVITAMINS,THERAPEUTIC TABLET PO SCH (09:00)
[2017-10-31] MEDS: METOPROLOL TARTRATE 25 MG TABLET PO SCH ×3 (09:00→21:59)
[2017-10-31] MEDS: DOCUSATE SODIUM 100 MG CAPSULE PO SCH (09:00)
--- NOTE | 2017-10-31 09:22 | NUR ---
gps/regional vice president surgical sales-Received patient back from ER via gurroger, with surgical stanford on, patient asleep, no distress. Report received from Ken Owens(ER). Has 3 eb intact will keep 10-14 days as ordered as ordered. No further bleeding noted at this time.Bed alarm on, continue to monitor safety.
[2017-10-31] MEDS: CARBIDOPA/LEVODOPA 25-250MG TABLET PO SCH ×5 (09:31→20:43)
--- NOTE | 2017-10-31 09:33 | NUR ---
Gps/Lpn Per Diem- Unable to administer routine am medications, patient asleep, will reoffer at a later time when awake. Patient asleep in bed, with bed alarm on, continue to monitor closely for safety.
[2017-10-31] MEDS: CLONAZEPAM 0.5 MG TABLET PO SCH ×3 (10:21→17:06)
--- NOTE | 2017-10-31 10:45 | NUR ---
1030 significant other, Vivien Kaur notified of the fall incident this morning.
--- NOTE | 2017-10-31 14:20 | NUR ---
Gps/Contractor Field Hauling- Ambulates around pacing, anxious, irritable and remains to have episodes where in patient calling sitter names, discouraged from doing so.Patient removed dressing /surginet from his occipital laceration , refused dressings, no bleeding noted, eb intact.
[2017-10-31 16:00] VITALS: BP 133/76
--- NOTE | 2017-10-31 17:47 | NUR ---
Gps/Rn Night- Eating dinner at the activity room, pleasant ,smiling, compliant with his routine medications, apologized from yesterdays' behavior.Continue to monitor safety,denies pain ,no discomfort at this time.
[2017-10-31] MEDS: QUETIAPINE FUMARATE 100 MG TABLET PO SCH (20:44)
[2017-10-31 21:15] VITALS: BP 120/66
--- NOTE | 2017-10-31 22:00 | NUR ---
received to care, watching tv in activity room. 1;1 sitter at his side, for safety. compliant with medications and staff direction. will continue to monitor closely.
--- NOTE | 2017-10-31 22:57 | NUR ---
Patient noted to be walking up and down the cisneros, and then at the activity room with other patients. Could go from being pleasant to aggressive and needs to be directed. Took his meds except Metoprolol. VS WNL. Will continue to monitor.
--- NOTE | 2017-10-31 23:30 | NUR ---
appears to be asleep. sitter at side. no distress noted.
--- NOTE | 2017-11-01 04:40 | NUR ---
pt is now awake, ambulating in the hallway, with an slightly unsteady gait, attempting to take items off the wall, in the ddining room. difficult to redirect. when asked to go back to bed, he said, "there's another option. i can punch you in the face." pt continued to wander, so he was placed in the mac chair, for safety. sitter remains at his side. currently putting hand lotion on, talking to self. remains calm. no distress noted. will continue to monitor closely.
[2017-11-01 05:11] VITALS: BP 105/67
--- NOTE | 2017-11-01 07:22 | NUR ---
remains calm. sitter at side. will continue to monitor closely.
[2017-11-01 07:30] VITALS: BP 120/78
[2017-11-01] MEDS: LAMOTRIGINE 100 MG TABLET PO SCH ×2 (08:28→20:46)
[2017-11-01] MEDS: DIVALPROEX ER 250 MG TAB.SR.24H PO SCH ×2 (08:28→17:02)
[2017-11-01] MEDS: MULTIVITAMINS,THERAPEUTIC TABLET PO SCH (08:28)
[2017-11-01] MEDS: HALOPERIDOL 2 MG TABLET PO SCH ×3 (08:28→17:03)
[2017-11-01] MEDS: DOCUSATE SODIUM 100 MG CAPSULE PO SCH (08:29)
[2017-11-01] MEDS: BENZTROPINE MESYLATE 0.5 MG TABLET PO SCH ×2 (08:29→17:03)
[2017-11-01] MEDS: CARBIDOPA/LEVODOPA 25-250MG TABLET PO SCH ×4 (08:29→20:46)
[2017-11-01] MEDS: METOPROLOL TARTRATE 25 MG TABLET PO SCH ×2 (08:29→20:42)
[2017-11-01] MEDS: CLONAZEPAM 0.5 MG TABLET PO SCH ×3 (08:29→17:03)
[2017-11-01] MEDS: NICOTINE 21 MG/24HR PATCH TD SCH ×2 (08:29→09:00)
[2017-11-01] MEDS: NEOMY/BACITRAC/POLYMI OINT 28.35 GM TUBE TOP SCH (08:30)
[2017-11-01] MEDS: BACITRACIN/POLYMYXIN B OINT 15 GM TUBE TOP SCH ×2 (09:07→20:46)
[2017-11-01] MEDS: ACETAMINOPHEN ES 500 MG TABLET PO PRN (09:55)
[2017-11-01 16:01] VITALS: BP 93/56
[2017-11-01 19:18] VITALS: BP 92/55
[2017-11-01 20:00] VITALS: BP 92/55
[2017-11-01] MEDS: QUETIAPINE FUMARATE 100 MG TABLET PO SCH (20:46)
[2017-11-02 07:06] LABS: BASOPHILS % (AUTO) 0.6 % (0.0-2.0); EOSINOPHILS # (AUTO) 0.2 K/uL (0.0-0.7); EOSINOPHILS % (AUTO) 2.1 % (0.0-7.0); HEMATOCRIT 36.6 % (36.7-47.1); HEMOGLOBIN 12.1 g/dL (12.5-16.3); LYMPHOCYTES # (AUTO) 1.3 K/uL (20.0-40.0); LYMPHOCYTES % (AUTO) 15.9 % (20.5-51.5); MEAN CORPUSCULAR HGB CONC 33 g/dL (32.5-36.3); MEAN CORPUSCULAR VOLUME 93.5 fL (73.0-96.2); MONOCYTES # (AUTO) 0.9 K/uL (2.0-10.0); MONOCYTES % (AUTO) 10.6 % (0.0-11.0); NEUTROPHILS # (AUTO) 5.8 K/uL (1.8-8.9); NEUTROPHILS % (AUTO) 70.8 % (38.5-71.5); PLATELET COUNT (AUTO) 207 K/uL (152-348); RED BLOOD CELL COUNT(AUTO) 3.91 MIL/uL (4.06-5.63); WHITE BLOOD COUNT (AUTO) 8.2 K/uL (3.6-10.2)
[2017-11-02 07:25] LABS: BILIRUBIN,TOTAL 0.3 mg/dL (0.2-1.0); CREATININE 1.9 mg/dL (0.6-1.3); MAGNESIUM 2.2 mg/dL (1.8-2.4); PHOSPHOROUS 3.3 mg/dL (2.5-4.9); POTASSIUM 4.9 mmol/L (3.5-5.1); TOTAL PROTEIN, SERUM 6.7 g/dL (6.4-8.2)
[2017-11-02 07:30] VITALS: BP 140/61
[2017-11-02] MEDS: CARBIDOPA/LEVODOPA 25-250MG TABLET PO SCH ×4 (08:26→20:05)
[2017-11-02] MEDS: DIVALPROEX ER 250 MG TAB.SR.24H PO SCH ×2 (08:26→17:26)
[2017-11-02] MEDS: LAMOTRIGINE 100 MG TABLET PO SCH ×2 (08:27→20:06)
[2017-11-02] MEDS: MULTIVITAMINS,THERAPEUTIC TABLET PO SCH (08:27)
[2017-11-02] MEDS: BENZTROPINE MESYLATE 0.5 MG TABLET PO SCH ×2 (08:27→17:26)
[2017-11-02] MEDS: CLONAZEPAM 0.5 MG TABLET PO SCH ×3 (08:27→17:27)
[2017-11-02] MEDS: HALOPERIDOL 2 MG TABLET PO SCH ×3 (08:27→17:26)
[2017-11-02] MEDS: DOCUSATE SODIUM 100 MG CAPSULE PO SCH (08:27)
[2017-11-02] MEDS: NICOTINE 14 MG/24HR PATCH TD SCH (08:36)
[2017-11-02] MEDS: BACITRACIN/POLYMYXIN B OINT 15 GM TUBE TOP SCH ×2 (08:37→20:41)
[2017-11-02] MEDS: NEOMY/BACITRAC/POLYMI OINT 28.35 GM TUBE TOP SCH (08:37)
[2017-11-02 15:57] VITALS: BP 113/63
--- NOTE | 2017-11-02 18:31 | NUR ---
Gps/Marking Devices Assembler- Remains with 1:1 Nursing supervision for safety, unsteady , safety continue to review emphasized.
[2017-11-02 19:48] VITALS: BP 129/75
[2017-11-02] MEDS: QUETIAPINE FUMARATE 100 MG TABLET PO SCH (20:06)
--- NOTE | 2017-11-02 21:02 | NUR ---
Patient remains with a 1:1 sitter for safety. Patient pleasant, calm, and cooperative patient is redirectable. Patient complain wtih medication. Patient in no apparent distress will continue to monitor. No aggressive or combative behavior noted will continue to monitor.
[2017-11-03 07:30] VITALS: BP 123/82
[2017-11-03] MEDS: BENZTROPINE MESYLATE 0.5 MG TABLET PO SCH ×2 (08:53→17:26)
[2017-11-03] MEDS: DIVALPROEX ER 250 MG TAB.SR.24H PO SCH ×2 (08:53→17:27)
[2017-11-03] MEDS: MULTIVITAMINS,THERAPEUTIC TABLET PO SCH (08:53)
[2017-11-03] MEDS: LAMOTRIGINE 100 MG TABLET PO SCH ×2 (08:53→20:17)
[2017-11-03] MEDS: CARBIDOPA/LEVODOPA 25-250MG TABLET PO SCH ×4 (08:54→20:17)
[2017-11-03] MEDS: DOCUSATE SODIUM 100 MG CAPSULE PO SCH (08:54)
[2017-11-03] MEDS: CLONAZEPAM 0.5 MG TABLET PO SCH ×3 (08:54→17:26)
[2017-11-03] MEDS: HALOPERIDOL 5 MG TABLET PO SCH ×2 (08:55→17:26)
[2017-11-03] MEDS ORDERED: HALOPERIDOL 2 MG TABLET PO SCH (09:00)
[2017-11-03] MEDS: BACITRACIN/POLYMYXIN B OINT 15 GM TUBE TOP SCH ×2 (09:32→20:22)
[2017-11-03] MEDS: NEOMY/BACITRAC/POLYMI OINT 28.35 GM TUBE TOP SCH (09:32)
[2017-11-03] MEDS: NICOTINE 14 MG/24HR PATCH TD SCH (10:25)
[2017-11-03 15:44] VITALS: BP 118/72
[2017-11-03] MEDS: QUETIAPINE FUMARATE 100 MG TABLET PO SCH (20:17)
[2017-11-03 20:27] VITALS: BP 128/76
--- NOTE | 2017-11-03 20:30 | NUR ---
Patient remains with a 1:1 sitter for safety. Patient pleasant, calm, and cooperative patient is redirectable. Patient complaint with medication. Poor impulse control, poor judgement.Patient in no apparent distress will continue to monitor. No aggressive or combative behavior noted will continue to monitor.
[2017-11-04 07:30] VITALS: BP 149/85
[2017-11-04] MEDS: HALOPERIDOL 5 MG TABLET PO SCH ×2 (08:27→16:58)
[2017-11-04] MEDS: LAMOTRIGINE 100 MG TABLET PO SCH ×2 (08:27→20:31)
[2017-11-04] MEDS: CLONAZEPAM 0.5 MG TABLET PO SCH ×3 (08:27→16:58)
[2017-11-04] MEDS: CARBIDOPA/LEVODOPA 25-250MG TABLET PO SCH ×4 (08:27→20:31)
[2017-11-04] MEDS: MULTIVITAMINS,THERAPEUTIC TABLET PO SCH (08:27)
[2017-11-04] MEDS: DOCUSATE SODIUM 100 MG CAPSULE PO SCH (08:27)
[2017-11-04] MEDS: DIVALPROEX ER 250 MG TAB.SR.24H PO SCH ×2 (08:27→17:04)
[2017-11-04] MEDS: NICOTINE 14 MG/24HR PATCH TD SCH (08:27)
[2017-11-04] MEDS: BENZTROPINE MESYLATE 0.5 MG TABLET PO SCH ×2 (08:28→16:58)
[2017-11-04] MEDS: BACITRACIN/POLYMYXIN B OINT 15 GM TUBE TOP SCH ×2 (08:28→20:59)
[2017-11-04] MEDS: NEOMY/BACITRAC/POLYMI OINT 28.35 GM TUBE TOP SCH (08:28)
[2017-11-04] MEDS: MAG HYDROX/AL HYDROX/SIMETH 30 ML LIQUID UDC PO PRN (08:57)
[2017-11-04 15:16] VITALS: BP 121/82
[2017-11-04 19:59] VITALS: BP 128/72
--- NOTE | 2017-11-04 20:30 | NUR ---
RECEIVED PATIENT IN THE HALLWAY, HE IS NOTED A/O X 3 ABLE TO AMBULATE WITH STEADY GAIT AND ABLE TO MAKE HIS NEEDS KNOWN. HE IS NOTED PLEASANT, COOPERATIVE WITH MEDICATION REGIMENT, BRIGHT AFFECT. SAFETY EMPHASIS, BED AT LOWEST POSITION, ALARM ON FREQUENTS HEAD CHECKS.
[2017-11-04] MEDS: QUETIAPINE FUMARATE 100 MG TABLET PO SCH (20:31)
--- NOTE | 2017-11-05 07:02 | NUR ---
PT SLEPT FOR APPROX 6.30 HRS THROUGH THE NIGHT. HE WAS NOTED INCONTINENT OF URINE X2. NO BX. PROBLEMS NOTED DURING THE SHIFT. PT AWARE OF HIS D/C TODAY.
[2017-11-05 07:30] VITALS: BP 159/79
[2017-11-05] MEDS: DOCUSATE SODIUM 100 MG CAPSULE PO SCH ×2 (09:00→09:11)
[2017-11-05] MEDS: MULTIVITAMINS,THERAPEUTIC TABLET PO SCH ×2 (09:00→09:11)
[2017-11-05] MEDS: DIVALPROEX ER 250 MG TAB.SR.24H PO SCH (09:00)
[2017-11-05] MEDS: NICOTINE 14 MG/24HR PATCH TD SCH ×2 (09:00→09:10)
[2017-11-05] MEDS: BENZTROPINE MESYLATE 0.5 MG TABLET PO SCH (09:00)
[2017-11-05] MEDS: NEOMY/BACITRAC/POLYMI OINT 28.35 GM TUBE TOP SCH (09:10)
[2017-11-05] MEDS: HALOPERIDOL 5 MG TABLET PO SCH (09:11)
[2017-11-05] MEDS: CLONAZEPAM 0.5 MG TABLET PO SCH ×2 (09:11→13:28)
[2017-11-05] MEDS: LAMOTRIGINE 100 MG TABLET PO SCH (09:11)
[2017-11-05] MEDS: CARBIDOPA/LEVODOPA 25-250MG TABLET PO SCH ×2 (09:11→13:28)
[2017-11-05] MEDS: BACITRACIN/POLYMYXIN B OINT 15 GM TUBE TOP SCH (09:25)
--- NOTE | 2017-11-05 09:34 | NUR ---
Discharge Note: Patient will be discharged to [facility] [[address] [place] [address]; [phone]] via ambulance at 1pm. Please arrange ambulance for this patient. Spoke with Bertrand at the facility who states they are ready to accept the patient today. Patient is aware and agreeable with discharge plans. Patient will continue to follow-up with his Primary Care Physician, Dr. Minda Villalba [[address], [place] [address]; [phone]] and his Psychiatrist, Dr. Jhonny Garner [[address] [place] [place] [address]; [phone]]. Home Health order was faxed to Gabriella at [facility] (tel. [phone]; fax [phone]). Patient was accepted for PT/OT and medication management starting on November 06, 2017. For smoking cessation, the patient was provided with referrals to [employer] (385-LUNGUSA) and [employer] ([phone]). Patient was also provided with outpatient mental health resources to [facility] ( ), [facility] Big[facility] ( ), and the National Suicide Prevention Lifeline ( ).
--- NOTE | 2017-11-05 14:45 | NUR ---
report called to [facility] AT [facility] AT 12 25PM, PATIENT DISCHARGED VIA AMBULANCE WITH ALL BELONGINGS IN NO ACUTE DISTRESS PATIENT AWARE OF TRANSFER AND HE IS RETURNING TO SAME FACILITY, sutures clean dry and intac no swelling or drainage or c/o pain except tender to touch , all paper work signed and patient agreeable
== END 2017-11-05 14:00 | DRG 885 ==
LOC: ER 20:17 → GPS 21:28
PROVIDERS: ADMIT Psychiatry & Neurology Psychiatry; ATTEND Internal Medicine
DX: F31.2 Bipolar disorder, current episode manic severe with psychotic features (principal); N18.9 Chronic kidney disease, unspecified; N17.0 Acute kidney failure with tubular necrosis; G20 Parkinson's disease; D68.59 Other primary thrombophilia; E88.09 Other disorders of plasma-protein metabolism, not elsewhere classified; G90.9 Disorder of the autonomic nervous system, unspecified; I13.0 Hypertensive heart and chronic kidney disease with heart failure and stage 1 through stage 4 chronic kidney disease, or unspecified chronic kidney disease; I50.30 Unspecified diastolic (congestive) heart failure; W06.XXXA Fall from bed, initial encounter; I27.20 Pulmonary hypertension, unspecified; J44.9 Chronic obstructive pulmonary disease, unspecified; F45.8 Other somatoform disorders; F41.9 Anxiety disorder, unspecified; Z87.820 Personal history of traumatic brain injury; Z85.46 Personal history of malignant neoplasm of prostate; I70.90 Unspecified atherosclerosis; K21.9 Gastro-esophageal reflux disease without esophagitis; Z86.718 Personal history of other venous thrombosis and embolism; N28.1 Cyst of kidney, acquired; F03.90 Unspecified dementia, unspecified severity, without behavioral disturbance, psychotic disturbance, mood disturbance, and anxiety; D64.9 Anemia, unspecified; Z74.09 Other reduced mobility; I67.2 Cerebral atherosclerosis; M89.9 Disorder of bone, unspecified; Z91.81 History of falling; I95.1 Orthostatic hypotension; S01.01XA Laceration without foreign body of scalp, initial encounter; Y93.89 Activity, other specified; Y92.230 Patient room in hospital as the place of occurrence of the external cause; Z86.79 Personal history of other diseases of the circulatory system; Z87.891 Personal history of nicotine dependence
CPT/HCPCS: 36415; 71045; 76770; 80164; 83735; 83970; 84100; 84155; 84156; 84165; 84300; 84443; 85025; 87086; 93307; A4663; A9150; J1200; J1630; J2060; J2358

== ENCOUNTER 2017-10-31 07:49 | Emergency (ER) | payer MEDICARE, OTHER ==
[~2017-10-31] VITALS: Ht 188 cm; Wt 81.6 kg
[~2017-10-31 07:49] MED LIST: ACET-73 PO; CARB-94 PO; DIVA500T7 PO; DOCU100C36 PO; IBUP-76 PO; LAMO200T2 PO; MIDO5TAB PO; MULT1TAB73 PO
--- NOTE | 2017-10-31 08:12 | NUR ---
Patient is able to move from mac-chair to gurney with 2 person assist. Comfort and safety measures maintained.
--- NOTE | 2017-10-31 09:03 | NUR ---
Patient discharged to MENTAL HEALTH UNIT in stable conditon. Written and verbal after care instructions given to MHU nurse Francine. Patient's nurse verbalizes understanding of instructions.
--- NOTE | 2017-10-31 09:06 | NUR ---
Patient escorted back to MHU via gurney.
== END 2017-10-31 09:06 | disposition home or self-care (01) ==
LOC: ER 07:49
DX: S01.01XA Laceration without foreign body of scalp, initial encounter (principal); Z79.1 Long term (current) use of non-steroidal anti-inflammatories (NSAID); Z79.899 Other long term (current) drug therapy; W01.198A Fall on same level from slipping, tripping and stumbling with subsequent striking against other object, initial encounter; Y92.89 Other specified places as the place of occurrence of the external cause; Y93.89 Activity, other specified; Y99.8 Other external cause status
CPT/HCPCS: 12002; 70450; 99284; A4217; A4663